=== PATIENT | female | born 1980 | race Caucasian/White ===

== ENCOUNTER 2022-04-07 13:27 | Inpatient (IN) | payer OTHER ==
[~2022-04-07] VITALS: Ht 152.4 cm; Wt 92.1 kg
[2022-04-07] MEDS ORDERED: HYDRALAZINE 20MG/ML VIAL IV ONE (14:00)
[2022-04-07 14:27] LABS: BASOPHILS % 0.6 % (0.0-2.0); EOSINOPHILS % 10.3 % (0.0-5.0); HEMATOCRIT. 38.5 % (36.0-48.0); HEMOGLOBIN. 12.4 g/dL (12.0-16.0); LYMPHOCYTES % 26.4 % (20.0-50.0); MEAN CORPUSCULAR HEMOGLOBIN 25.1 pg (28.0-32.0); MEAN CORPUSCULAR VOLUME 77.7 fL (81.0-99.0); MEAN PLATELET VOLUME 9.9 fl (7.4-10.4); MONOCYTES % 9.6 % (2.0-8.0); NEUTROPHILS % 53.1 % (40.0-76.0); PLATELET 222 x1000/uL (130-400); RED BLOOD CELL COUNT 4.96 mill/uL (4.2-5.4); RED CELL DISTRIBUTION WIDTH 21.3 % (11.6-14.6)
[2022-04-07 14:33] LABS: CLARITY URINE CLEAR (CLEAR); COLOR URINE YELLOW (YELLOW); KETONES URINE NEGATIVE (NEGATIVE); LEUKOCYTE ESTERASE URINE NEGATIVE (NEGATIVE); NITRITE URINE NEGATIVE (NEGATIVE); OCCULT BLOOD URINE NEGATIVE (NEGATIVE); PROTEIN URINE NEGATIVE (NEGATIVE); SPECIFIC GRAVITY URINE 1.004 (1.005-1.030); UROBILINOGEN URINE 0.2 E.U./dL (0.2-1.0)
[2022-04-07 14:37] LABS: CHLORIDE 103 mEq/L (98-107)
[2022-04-07 14:47] LABS: ETHANOL BLOOD < 10 mg/dL
[2022-04-07 14:49] LABS: *AMPHETAMINES SCREEN URINE NEGATIVE (NEGATIVE); *BARBITURATES SCREEN URINE NEGATIVE (NEGATIVE); *BENZODIAZEPINES SCREEN URINE NEGATIVE (NEGATIVE); *COCAINE SCREEN URINE NEGATIVE (NEGATIVE); CANNABINOID URINE SCREEN NEGATIVE (NEGATIVE); METHADONE URINE SCREEN NEGATIVE (NEGATIVE); OPIATES URINE SCREEN NEGATIVE (NEGATIVE); PHENCYCLIDINE URINE SCREEN NEGATIVE (NEGATIVE)
[2022-04-07] MEDS ORDERED: ASPIRIN 325MG EC TABLET PO ONE (15:15)
[2022-04-07] MEDS ORDERED: MORPHINE SULFATE 2 MG/ML CPJ (NOT FOR IM USE) IV ONE (15:15)
[2022-04-07 16:18] LABS: BG BASE EXCESS -1.1 mmol/L (-2.0-2.0); BG CARBOXYHEMOGLOBIN 0.3 % (0.5-1.5); BG DEOXYHEMOGLOBIN 4.7 % (0.0-5.0); BG FRACTION INSPIRED OXYGEN 21; BG HCO3 ACT 22.4 mmol/L (22.0-26.0); BG METHEMOGLOBIN 0.1 % (0.0-1.5); BG OXYGEN SATURATION 95.3 % (92.0-98.5); BG OXYHEMOGLOBIN 94.9 % (94.0-97.0); BG PCO2 33.7 mmHg (35.0-45.0); BG PH 7.441 (7.350-7.450); BG PO2 76.5 mmHg (75.0-100.0); BG SAMPLE SITE LEFT RADIAL; BG VENT MODE ROOM AIR
[2022-04-07] MEDS ORDERED: DIPHENHYDRAMINE 50MG/ML VIAL IV PRN (18:00)
[2022-04-07] MEDS ORDERED: CLONIDINE 0.1MG TABLET PO PRN (18:00)
[2022-04-07] MEDS ORDERED: IPRATROPIUM/ALBUTEROL 0.5-3(2.5)MG/3ML NEB HHN PRN (18:00)
[2022-04-07] MEDS ORDERED: MORPHINE SULFATE 2 MG/ML CPJ (NOT FOR IM USE) IV PRN (18:00)
[2022-04-07] MEDS ORDERED: ONDANSETRON HCL 4MG/2ML INJ IV PRN (18:00)
[2022-04-07] MEDS ORDERED: ACETAMINOPHEN 325MG TABLET PO PRN (18:00)
[2022-04-07 20:45] VITALS: BP 149/87
[2022-04-07] MEDS ORDERED: FERR325T6 PO (21:21)
[2022-04-07] MEDS ORDERED: LOSA25TA26 PO (21:21)
[2022-04-07] MEDS ORDERED: POTASSIUM CHLORIDE 20MEQ TABLET SR PO NR (23:15)
[2022-04-07] MEDS ORDERED: HYDROCODONE/ACETAMINOPHEN 5/325MG TABLET PO PRN (23:15)
[2022-04-07] MEDS: ENOXAPARIN 40MG/0.4ML SYR SUBCUT SCH (23:27)
[2022-04-08] VITALS: BP 143/76
[2022-04-08 04:00] VITALS: BP_SYST 128; BP_SYST 137; BP_DIAS 73; BP_DIAS 75
[2022-04-08 08:00] VITALS: BP 110/49
[2022-04-08] MEDS: FERROUS SULFATE 325MG TABLET PO SCH (08:48)
[2022-04-08] MEDS: LOSARTAN POTASSIUM 25 MG TABLET PO SCH (08:48)
[2022-04-08 10:28] LABS: BASOPHILS % 0.5 % (0.0-2.0); EOSINOPHILS % 7.3 % (0.0-5.0); HEMATOCRIT. 36.8 % (36.0-48.0); HEMOGLOBIN. 11.8 g/dL (12.0-16.0); LYMPHOCYTES % 20.5 % (20.0-50.0); MEAN CORPUSCULAR HEMOGLOBIN 25.2 pg (28.0-32.0); MEAN CORPUSCULAR VOLUME 78.4 fL (81.0-99.0); MEAN PLATELET VOLUME 9.9 fl (7.4-10.4); MONOCYTES % 8.1 % (2.0-8.0); NEUTROPHILS % 63.6 % (40.0-76.0); PLATELET 202 x1000/uL (130-400); RED CELL DISTRIBUTION WIDTH 21.8 % (11.6-14.6)
[2022-04-08 11:45] LABS: CHLORIDE 107 mEq/L (98-107)
[2022-04-08 12:00] VITALS: BP 134/78
[2022-04-08 16:00] VITALS: BP 129/62
[2022-04-08 20:00] VITALS: BP 133/89
[2022-04-08] MEDS: CETIRIZINE 10MG TABLET PO SCH (20:36)
[2022-04-08] MEDS: ENOXAPARIN 40MG/0.4ML SYR SUBCUT SCH (20:37)
[2022-04-08] MEDS ORDERED: FLUTICASONE PROPIONATE 50MCG/SPRAY BOTTLE BOTHNSTRLS SCH (21:00)
[2022-04-09] VITALS: BP 112/56
[2022-04-09 04:00] VITALS: BP 128/75
[2022-04-09 08:00] VITALS: BP 140/69
[2022-04-09] MEDS: CETIRIZINE 10MG TABLET PO SCH (09:21)
[2022-04-09] MEDS: LOSARTAN POTASSIUM 25 MG TABLET PO SCH (09:21)
[2022-04-09] MEDS: FERROUS SULFATE 325MG TABLET PO SCH (09:22)
[2022-04-09] MEDS ORDERED: LOSA25TA26 PO (11:41)
[2022-04-09] MEDS ORDERED: FLUT9.9S BOTHNSTRLS (11:41)
[2022-04-09] MEDS ORDERED: CETI10TA6 PO (11:41)
[2022-04-09 12:00] VITALS: BP 134/61
[2022-04-09 15:48] LABS: HCG SCREEN NEGATIVE
[2022-04-09 16:00] VITALS: BP 123/69
[2022-04-09 16:45] VITALS: BP 123/69
== END 2022-04-09 18:20 | disposition home or self-care (01) | DRG 305 ==
LOC: ER 15:38 → EDBEDREQ 17:51 → ENRESERV 18:24 → 7WST 21:34
PROVIDERS: ADMIT Internal Medicine; ATTEND Internal Medicine
DX: I16.0 Hypertensive urgency (principal); I10 Essential (primary) hypertension; E66.9 Obesity, unspecified; Z68.39 Body mass index [BMI] 39.0-39.9, adult; Z86.718 Personal history of other venous thrombosis and embolism; Z79.01 Long term (current) use of anticoagulants; Z87.19 Personal history of other diseases of the digestive system
CPT/HCPCS: 36415; 36600; 80053; 80305; 80320; 81003; 82375; 82805; 84484; 84703; 85025; 85379; 93005; 93306; 93970; 99285; J0360; J1650; J2270; G0480